=== PATIENT | female | born 1985 | race Caucasian/White ===

== ENCOUNTER 2022-02-16 12:53 | Outpatient (CLI) | payer OTHER, SELFPAY ==
--- NOTE | 2022-02-16 13:00 | CRLHL7_ITS ---
For Patients: As a result of the Century Cures Act, medical imaging exams and procedure reports are released immediately into your electronic medical record. You may view this report before your referring provider. If you have questions, please contact your health care provider. INDICATION: IUD threads lost TECHNIQUE: Ultrasound pelvis transabdominal and transvaginal for better assessment or to better visualize the endometrium. Real time sonographic images with Spectral and color Doppler imaging of the ovaries were obtained. COMPARISON: None FINDINGS: Uterus: 7.3 centimeter x 3.7 centimeter x 4.3 centimeter. Normal echotexture of the myometrium. No masses. Endometrium: Transvaginal imaging was performed to better evaluate the endometrium. 3 millimeters in thickness. No sign of endometrial mass or fluid. IUD present the endometrial canal. Right ovary: 2.8 centimeter x 2.0 centimeter x 2.3 centimeter no ovarian or adnexal masses. Normal arterial and venous blood flow. Left ovary: 3.1 centimeter x 2.1 centimeter x 2.1 centimeter. No ovarian or adnexal masses. Normal arterial and venous blood flow. Cul-de-sac: No significant free fluid. IMPRESSION: Unremarkable pelvic ultrasound. IUD present in the endometrial canal. Dictated by Willard Emery MD @ 02/16/2022 6:11:40 PM (Electronically Signed)
== END 2022-02-16 12:54 | disposition home or self-care (01) ==
LOC: US 12:56
PROVIDERS: Visit Provider Registered Nurse
DX: T83.32XA Displacement of intrauterine contraceptive device, initial encounter (principal)
CPT/HCPCS: 76830; 76856

== ENCOUNTER 2022-10-08 09:15 | Outpatient (CLI) | payer OTHER, SELFPAY | END 2022-10-08 09:16 | disposition home or self-care (01) | PROVIDERS: Visit Provider Registered Nurse | DX: Z01.419 Encounter for gynecological examination (general) (routine) without abnormal findings (principal); Z13.6 Encounter for screening for cardiovascular disorders; Z13.29 Encounter for screening for other suspected endocrine disorder; Z13.0 Encounter for screening for diseases of the blood and blood-forming organs and certain disorders involving the immune mechanism | CPT/HCPCS: 80053; 80061; 82306; 82607; 84443 ==

== ENCOUNTER 2023-10-21 10:35 | Outpatient (CLI) | payer OTHER, SELFPAY | END 2023-10-21 10:36 | disposition home or self-care (01) | PROVIDERS: Visit Provider Registered Nurse | DX: Z01.419 Encounter for gynecological examination (general) (routine) without abnormal findings (principal); Z13.220 Encounter for screening for lipoid disorders; Z13.6 Encounter for screening for cardiovascular disorders; Z13.29 Encounter for screening for other suspected endocrine disorder; Z13.21 Encounter for screening for nutritional disorder; Z13.9 Encounter for screening, unspecified | CPT/HCPCS: 80053; 80061; 82306; 82607; 82728; 83540; 83550; 84443 ==

== ENCOUNTER 2025-04-05 09:08 | Outpatient (CLI) | payer OTHER, SELFPAY | END 2025-04-05 09:09 | disposition home or self-care (01) | PROVIDERS: Visit Provider Registered Nurse | DX: Z13.6 Encounter for screening for cardiovascular disorders (principal); Z13.29 Encounter for screening for other suspected endocrine disorder; Z13.21 Encounter for screening for nutritional disorder; Z13.0 Encounter for screening for diseases of the blood and blood-forming organs and certain disorders involving the immune mechanism; Z13.9 Encounter for screening, unspecified | CPT/HCPCS: 80053; 80061; 82306; 82607; 83540; 83550; 84443 ==

== ENCOUNTER 2025-04-11 07:00 | Outpatient (CLI) | payer OTHER, SELFPAY ==
--- NOTE | 2025-04-11 07:15 | CRLHL7_ITS ---
For Patients: As a result of the Century Cures Act, medical imaging exams and procedure reports are released immediately into your electronic medical record. You may view this report before your referring provider. If you have questions, please contact your health care provider. INDICATION: Displacement of IUD COMPARISON: 02/16/2022 TECHNIQUE: 2D foley-scale and color Doppler images were acquired of the pelvis using a transabdominal and transvaginal approach. Transvaginal imaging performed to better visualize the endometrial stripe and ovaries. FINDINGS: Sonographic images demonstrate a normal size and smooth outer contour of the uterus. Uterus measures 8.1 cm in length by 4.0 cm in AP diameter by 4.4 cm in transverse dimension. The myometrium has a normal uniform echotexture. The endometrial lining appears normal and measures 3.9 mm in composite thickness. Normal position of an IUD within the endometrium. The right ovary measures 2.6 x 1.8 x 1.9 cm in size and the left ovary measures 3.3 x 2.0 x 2.9 cm. The ovaries demonstrate normal arterial and venous blood flow on color Doppler analysis. There are no suspicious fluid collections within the cul-de-sac. IMPRESSION: Normal position of an IUD within the endometrial canal. The IUD strings are present within the right lateral superior endocervical canal. Dictated by Willard Pryor MD @ 04/11/2025 8:21:30 AM (Electronically Signed)
== END 2025-04-11 07:01 | disposition home or self-care (01) ==
LOC: US 07:02
PROVIDERS: Visit Provider Registered Nurse
DX: T83.32XA Displacement of intrauterine contraceptive device, initial encounter (principal)
CPT/HCPCS: 76830; 76856